=== PATIENT | female | born 1955 | race Caucasian/White ===

== ENCOUNTER → 2018-04-21 | Outpatient (REF) | payer BC | LOC: M SFHCLERA 11:04 | DX: R30.0 Dysuria (principal) ==

== ENCOUNTER → 2018-04-21 | Outpatient (CLI) | payer BC, OTHER | LOC: M LRY 11:03 | DX: R91.8 Other nonspecific abnormal finding of lung field (principal); R30.0 Dysuria; J40 Bronchitis, not specified as acute or chronic; Z91.09 Other allergy status, other than to drugs and biological substances | CPT/HCPCS: 87086 ==

== ENCOUNTER → 2018-08-08 | Outpatient (REF) | payer BC | LOC: M SFHCLERA 10:50 | DX: L02.91 Cutaneous abscess, unspecified (principal); R23.8 Other skin changes | CPT/HCPCS: 87529 ==

== ENCOUNTER 2018-08-09 15:35 | Emergency (ER) | payer BC ==
[2018-08-09 17:20] LABS: BASO % 0.5 % (0.0-1.0); EOS # 0.5 10^3/uL (0.0-0.50); EOS % 6.6 % (0.0-3.0); HEMATOCRIT 43.3 % (36.0-47.0); HEMOGLOBIN 13.7 g/dl (12.0-15.5); IMMATURE GRANULOCYTE % 1.8 % (0-3.0); LYMPH # 1.8 10^3/uL (1.5-4.5); LYMPH % 22.6 % (24.0-44.0); MEAN CORPUSCULAR HEMOGLOBIN 31.1 pg (27.0-33.0); MEAN CORPUSCULAR HGB CONC 31.6 g/dl (32.0-36.5); MEAN CORPUSCULAR VOLUME 98.2 fl (80.0-96.0); MONO # 0.5 10^3/uL (0.0-0.8); MONO % 6.4 % (0.0-5.0); NEUTROPHILS % 62.1 % (36.0-66.0); PLATELET COUNT, AUTOMATED 118 10^3/uL (150-450); RED BLOOD COUNT 4.41 10^6/uL (4.00-5.40); RED CELL DISTRIBUTION WIDTH 13.6 % (11.5-14.5); WHITE BLOOD COUNT 8.1 10^3/uL (4.0-10.0)
[2018-08-09 17:25] LABS: KETONE, URINE AUTO RFX NEGATIVE (NEGATIVE); LEUKOCYTE ESTERASE UR AUTO RFX NEGATIVE (NEGATIVE); NITRITE, URINE AUTO RFX NEGATIVE (NEGATIVE); RBC, URINE AUTO RFX 3 /HPF (0-3); SPECIFIC GRAVITY UR AUTO RFX 1.003 (1.002-1.035); SQUAM EPITHELIAL CELL UR AURFX 0 /HPF (0-6); WBC, URINE AUTO RFX 1 /HPF (0-3)
[2018-08-09 17:30] LABS: INR 0.93; PROTHROMBIN TIME 12.6 SECONDS (12.1-14.4)
[2018-08-09 17:31] LABS: PARTIAL THROMBOPLASTIN TIME 36.9 SECONDS (25.4-37.6)
[2018-08-09 17:33] LABS: LACTIC ACID SEPSIS PROTOCOL 0.4 MMOL/L (0.4-2.0)
[2018-08-09 17:39] LABS: ALBUMIN 3.1 GM/DL (3.2-5.2); ALBUMIN/GLOBULIN RATIO 0.78 (1.00-1.93); ALKALINE PHOSPHATASE 72 U/L (45-117); ALT/SGPT 53 U/L (12-78); ANION GAP 3 MEQ/L (8-16); AST/SGOT 27 U/L (7-37); BILIRUBIN,DIRECT < 0.1 MG/DL (0.0-0.2); BILIRUBIN,TOTAL 0.3 MG/DL (0.2-1.0); BLOOD UREA NITROGEN 46 MG/DL (7-18); CALCIUM LEVEL 8.4 MG/DL (8.8-10.2); CARBON DIOXIDE LEVEL 30 MEQ/L (21-32); CHLORIDE LEVEL 109 MEQ/L (98-107); CREATININE FOR GFR 2.85 MG/DL (0.55-1.30); GLOMERULAR FILTRATION RATE 17.9 (>45); GLUCOSE, FASTING 112 MG/DL (70-100); MAGNESIUM LEVEL 3.3 MG/DL (1.8-2.4); POTASSIUM SERUM 5.2 MEQ/L (3.5-5.1); SODIUM LEVEL 142 MEQ/L (136-145); TOTAL PROTEIN 7.1 GM/DL (6.4-8.2)
== END 2018-08-09 18:47 | disposition home or self-care (01) ==
LOC: M ED 15:35
DX: E86.0 Dehydration (principal); T37.5X5A Adverse effect of antiviral drugs, initial encounter; Y92.9 Unspecified place or not applicable; Y93.9 Activity, unspecified; E11.9 Type 2 diabetes mellitus without complications; I10 Essential (primary) hypertension; E78.5 Hyperlipidemia, unspecified; K21.9 Gastro-esophageal reflux disease without esophagitis; Z72.0 Tobacco use; Z79.82 Long term (current) use of aspirin; Z79.4 Long term (current) use of insulin; Z79.899 Other long term (current) drug therapy; Z88.2 Allergy status to sulfonamides; Z91.010 Allergy to peanuts
CPT/HCPCS: 71046

== ENCOUNTER 2018-08-16 20:10 | Inpatient (IN) | payer BC ==
[2018-08-16] MEDS ORDERED: ONDANSETRON 4MG/2ML VIAL (J2405) IV (20:45)
[2018-08-16] MEDS: HumaLOG INSULIN (NovoLOG) PER UNIT SC (21:00)
[2018-08-16] MEDS: HEPARIN SOD (PORCINE) 5000 UNITS/ML VIAL SQ (21:00)
[2018-08-16] MEDS ORDERED: GLUCOSE 4 GM CHEW TABLET PO (21:15)
[2018-08-16] MEDS ORDERED: DEXTROSE 50% 50 ML SYRINGE IV (21:15)
[2018-08-16] MEDS ORDERED: GLUCAGON FOR INJ 1 MG VIAL (J1610) SC (21:15)
[2018-08-16 21:24] LABS: BASO % 0.2 % (0.0-1.0); EOS # 0.1 10^3/uL (0.0-0.50); EOS % 0.6 % (0.0-3.0); HEMATOCRIT 43.9 % (36.0-47.0); HEMOGLOBIN 13.8 g/dl (12.0-15.5); IMMATURE GRANULOCYTE % 1.4 % (0-3.0); LYMPH # 0.7 10^3/uL (1.5-4.5); LYMPH % 7.4 % (24.0-44.0); MEAN CORPUSCULAR HEMOGLOBIN 30.8 pg (27.0-33.0); MEAN CORPUSCULAR HGB CONC 31.4 g/dl (32.0-36.5); MONO % 0.4 % (0.0-5.0); NEUTROPHILS # 8.1 10^3/uL (1.8-7.7); RED BLOOD COUNT 4.48 10^6/uL (4.00-5.40); RED CELL DISTRIBUTION WIDTH 14.4 % (11.5-14.5)
[2018-08-16] MEDS ORDERED: NICOTINE 14 MG/24 HR TRANSDERMAL TD (21:30)
[2018-08-16 21:33] LABS: INR 0.92; PROTHROMBIN TIME 12.4 SECONDS (12.1-14.4)
[2018-08-16 21:34] LABS: AMMONIA 21 uMOL/L (<32)
[2018-08-16 21:38] LABS: LACTIC ACID SEPSIS PROTOCOL 0.7 MMOL/L (0.4-2.0)
[2018-08-16 21:53] LABS: IMMATURE PLATELET FRACTION % 7.7 % (0.0-9.6); PLATELET COUNT, AUTOMATED 88 10^3/uL (150-450)
[2018-08-16 21:58] LABS: ALBUMIN 3.2 GM/DL (3.2-5.2); ALBUMIN/GLOBULIN RATIO 0.94 (1.00-1.93); ALKALINE PHOSPHATASE 73 U/L (45-117); ALT/SGPT 92 U/L (12-78); ANION GAP 6 MEQ/L (8-16); AST/SGOT 37 U/L (7-37); BILIRUBIN,TOTAL 0.2 MG/DL (0.2-1.0); BLOOD UREA NITROGEN 40 MG/DL (7-18); C REACTIVE PROTEIN QUANTITATIV < 0.30 MG/DL (0.00-0.30); CALCIUM LEVEL 8.1 MG/DL (8.8-10.2); CARBON DIOXIDE LEVEL 28 MEQ/L (21-32); CHLORIDE LEVEL 109 MEQ/L (98-107); CPK CREATINE PHOSPHOKINASE 104 U/L (26-192); CREATININE FOR GFR 2.31 MG/DL (0.55-1.30); GLOMERULAR FILTRATION RATE 22.8 (>45); GLUCOSE, FASTING 148 MG/DL (70-100); MAGNESIUM LEVEL 3.4 MG/DL (1.8-2.4); POTASSIUM SERUM 5.1 MEQ/L (3.5-5.1); SODIUM LEVEL 143 MEQ/L (136-145); TOTAL PROTEIN 6.6 GM/DL (6.4-8.2); TROPONIN I < 0.02 NG/ML (< 0.10)
[2018-08-16] MEDS: ASPIRIN 325 MG TAB PO (22:06)
[2018-08-16] MEDS: GABAPENTIN 300 MG CAP PO (22:06)
[2018-08-16] MEDS: **hydrALAZINE** 50 MG TAB PO (22:07)
[2018-08-16] MEDS: NS 1,000 ML IV (22:07)
[2018-08-16] MEDS: SIMVASTATIN 40 MG TAB PO (22:07)
[2018-08-16] MEDS: LEVEMIR (INSULIN DETEMIR) 1 UNITS/0.01ML SC (22:11)
[2018-08-16 22:29] LABS: BEDSIDE GLUCOSE 139 MG/DL (80-115)
[2018-08-16 22:36] LABS: KETONE, URINE AUTO RFX NEGATIVE (NEGATIVE); LEUKOCYTE ESTERASE UR AUTO RFX NEGATIVE (NEGATIVE); NITRITE, URINE AUTO RFX NEGATIVE (NEGATIVE); RBC, URINE AUTO RFX 2 /HPF (0-3); SPECIFIC GRAVITY UR AUTO RFX 1.008 (1.002-1.035); SQUAM EPITHELIAL CELL UR AURFX 1 /HPF (0-6); WBC, URINE AUTO RFX 0 /HPF (0-3)
[2018-08-16 22:39] LABS: OSMOLALITY URINE 276 MOSM/KG (500-800)
[2018-08-16 22:55] LABS: CHLORIDE,RANDOM URINE 66 MEQ/L; CREATININE,RANDOM URINE 19.7 MG/DL; POTASSIUM RANDOM URINE 20.7 MEQ/L; SODIUM,RANDOM URINE 63 MEQ/L; TOTAL PROTEIN,RANDOM URINE 433.2 MG/DL (0.0-12.0)
[2018-08-17 02:55] LABS: HEMATOCRIT 39.4 % (36.0-47.0); HEMOGLOBIN 12.5 g/dl (12.0-15.5); MEAN CORPUSCULAR HEMOGLOBIN 30.9 pg (27.0-33.0); MEAN CORPUSCULAR HGB CONC 31.7 g/dl (32.0-36.5); MEAN CORPUSCULAR VOLUME 97.3 fl (80.0-96.0); RED BLOOD COUNT 4.05 10^6/uL (4.00-5.40); RED CELL DISTRIBUTION WIDTH 14.1 % (11.5-14.5); WHITE BLOOD COUNT 7.7 10^3/uL (4.0-10.0)
[2018-08-17 02:56] LABS: PLATELET COUNT, AUTOMATED 88 10^3/uL (150-450)
[2018-08-17 03:10] LABS: ALBUMIN 2.8 GM/DL (3.2-5.2); ANION GAP 4 MEQ/L (8-16); BLOOD UREA NITROGEN 42 MG/DL (7-18); CALCIUM LEVEL 7.7 MG/DL (8.8-10.2); CARBON DIOXIDE LEVEL 28 MEQ/L (21-32); CHLORIDE LEVEL 111 MEQ/L (98-107); GLOMERULAR FILTRATION RATE 22.9 (>45); GLUCOSE, FASTING 116 MG/DL (70-100); MAGNESIUM LEVEL 3.3 MG/DL (1.8-2.4); POTASSIUM SERUM 5.1 MEQ/L (3.5-5.1); SODIUM LEVEL 143 MEQ/L (136-145)
[2018-08-17 03:16] LABS: CPK CREATINE PHOSPHOKINASE 76 U/L (26-192); MB/CK RELATIVE INDEX 4.08 (< OR =4); TROPONIN I < 0.02 NG/ML (< 0.10)
[2018-08-17] MEDS: **hydrALAZINE** 50 MG TAB PO ×4 (05:05→22:00)
[2018-08-17] MEDS: HumaLOG INSULIN (NovoLOG) PER UNIT SC ×4 (07:30→21:26)
[2018-08-17] MEDS: HEPARIN SOD (PORCINE) 5000 UNITS/ML VIAL SQ ×2 (09:51→21:27)
[2018-08-17] MEDS: ASPIRIN 81 MG ENTERIC TAB PO (09:52)
[2018-08-17] MEDS: CARVedilol 12.5 MG TAB PO ×2 (09:52→21:25)
[2018-08-17 11:46] LABS: BEDSIDE GLUCOSE 283 MG/DL (80-115)
[2018-08-17] MEDS ORDERED: PATIROMER SORBITEX CALCIUM 8.4 GM POWDER PACKET (VELTASSA) PO (12:00)
[2018-08-17 17:02] LABS: BEDSIDE GLUCOSE 106 MG/DL (80-115)
[2018-08-17 21:24] LABS: BEDSIDE GLUCOSE 112 MG/DL (80-115)
[2018-08-17] MEDS: SIMVASTATIN 40 MG TAB PO (21:24)
[2018-08-17] MEDS: GABAPENTIN 300 MG CAP PO (21:24)
[2018-08-17] MEDS: LEVEMIR (INSULIN DETEMIR) 1 UNITS/0.01ML SC (21:26)
[2018-08-18 04:48] LABS: BEDSIDE GLUCOSE 53 MG/DL (80-115)
[2018-08-18] MEDS: **hydrALAZINE** 50 MG TAB PO ×3 (05:04→21:58)
[2018-08-18 05:10] LABS: HEMATOCRIT 38.4 % (36.0-47.0); MEAN CORPUSCULAR HEMOGLOBIN 30.7 pg (27.0-33.0); MEAN CORPUSCULAR HGB CONC 31.3 g/dl (32.0-36.5); MEAN CORPUSCULAR VOLUME 98.2 fl (80.0-96.0); RED BLOOD COUNT 3.91 10^6/uL (4.00-5.40); RED CELL DISTRIBUTION WIDTH 14.6 % (11.5-14.5); WHITE BLOOD COUNT 9.6 10^3/uL (4.0-10.0)
[2018-08-18 05:12] LABS: PLATELET COUNT, AUTOMATED 90 10^3/uL (150-450)
[2018-08-18 05:13] LABS: IMMATURE PLATELET FRACTION % 8.3 % (0.0-9.6)
[2018-08-18 05:14] LABS: BEDSIDE GLUCOSE 101 MG/DL (80-115)
[2018-08-18 05:17] LABS: ALBUMIN 2.8 GM/DL (3.2-5.2); ANION GAP 6 MEQ/L (8-16); BLOOD UREA NITROGEN 51 MG/DL (7-18); CALCIUM LEVEL 7.8 MG/DL (8.8-10.2); CARBON DIOXIDE LEVEL 28 MEQ/L (21-32); CHLORIDE LEVEL 105 MEQ/L (98-107); CREATININE FOR GFR 2.66 MG/DL (0.55-1.30); GLOMERULAR FILTRATION RATE 19.4 (>45); GLUCOSE, FASTING 50 MG/DL (70-100); MAGNESIUM LEVEL 3.3 MG/DL (1.8-2.4); PHOSPHORUS LEVEL 4.7 MG/DL (2.5-4.9); SODIUM LEVEL 139 MEQ/L (136-145)
[2018-08-18 07:55] LABS: BEDSIDE GLUCOSE 57 MG/DL (80-115)
[2018-08-18] MEDS: HumaLOG INSULIN (NovoLOG) PER UNIT SC ×4 (08:00→21:00)
[2018-08-18 08:17] LABS: BEDSIDE GLUCOSE 70 MG/DL (80-115)
[2018-08-18] MEDS: HEPARIN SOD (PORCINE) 5000 UNITS/ML VIAL SQ ×2 (09:00→21:00)
[2018-08-18] MEDS: CARVedilol 12.5 MG TAB PO ×2 (10:06→21:58)
[2018-08-18] MEDS: ASPIRIN 81 MG ENTERIC TAB PO (10:06)
[2018-08-18 11:41] LABS: BEDSIDE GLUCOSE 128 MG/DL (80-115)
[2018-08-18] MEDS: FUROSEMIDE 20 MG TAB PO (13:35)
[2018-08-18 16:56] LABS: BEDSIDE GLUCOSE 133 MG/DL (80-115)
[2018-08-18] MEDS: LEVEMIR (INSULIN DETEMIR) 1 UNITS/0.01ML SC (21:00)
[2018-08-18 21:01] LABS: BEDSIDE GLUCOSE 105 MG/DL (80-115)
[2018-08-18] MEDS: GABAPENTIN 300 MG CAP PO (21:57)
[2018-08-18] MEDS: SIMVASTATIN 40 MG TAB PO (21:58)
[2018-08-19 01:01] LABS: BEDSIDE GLUCOSE 157 MG/DL (80-115)
[2018-08-19] MEDS: **hydrALAZINE** 50 MG TAB PO (05:20)
[2018-08-19 07:05] LABS: HEMATOCRIT 38.7 % (36.0-47.0); HEMOGLOBIN 12.1 g/dl (12.0-15.5); MEAN CORPUSCULAR HEMOGLOBIN 30.3 pg (27.0-33.0); MEAN CORPUSCULAR HGB CONC 31.3 g/dl (32.0-36.5); RED BLOOD COUNT 3.99 10^6/uL (4.00-5.40); RED CELL DISTRIBUTION WIDTH 14.5 % (11.5-14.5); WHITE BLOOD COUNT 8.6 10^3/uL (4.0-10.0)
[2018-08-19 07:06] LABS: PLATELET COUNT, AUTOMATED 93 10^3/uL (150-450)
[2018-08-19 07:13] LABS: IMMATURE PLATELET FRACTION % 7.5 % (0.0-9.6)
[2018-08-19] MEDS: HumaLOG INSULIN (NovoLOG) PER UNIT SC (07:30)
[2018-08-19 07:31] LABS: ALBUMIN 2.9 GM/DL (3.2-5.2); ANION GAP 6 MEQ/L (8-16); BLOOD UREA NITROGEN 57 MG/DL (7-18); CALCIUM LEVEL 8.2 MG/DL (8.8-10.2); CARBON DIOXIDE LEVEL 27 MEQ/L (21-32); CHLORIDE LEVEL 106 MEQ/L (98-107); CREATININE FOR GFR 2.61 MG/DL (0.55-1.30); GLOMERULAR FILTRATION RATE 19.8 (>45); GLUCOSE, FASTING 62 MG/DL (70-100); MAGNESIUM LEVEL 3.4 MG/DL (1.8-2.4); PHOSPHORUS LEVEL 5.5 MG/DL (2.5-4.9); SODIUM LEVEL 139 MEQ/L (136-145)
[2018-08-19 07:58] LABS: BEDSIDE GLUCOSE 65 MG/DL (80-115)
[2018-08-19] MEDS: HEPARIN SOD (PORCINE) 5000 UNITS/ML VIAL SQ (09:00)
[2018-08-19] MEDS: CARVedilol 12.5 MG TAB PO (09:00)
[2018-08-19] MEDS: ASPIRIN 81 MG ENTERIC TAB PO (09:49)
[2018-08-19] MEDS: FUROSEMIDE 20 MG TAB PO (10:44)
[2018-08-19] MEDS ORDERED: **hydrALAZINE HCL** 25 MG TAB PO (16:00)
[2018-08-20] MEDS ORDERED: FUROSEMIDE 20 MG TAB PO (09:00)
[2018-08-21] MEDS ORDERED: VITAMIN D 50,000 UNITS CAPSULE (ERGOCALCIFEROL 1.25MG) PO (09:00)
== END 2018-08-19 10:50 | disposition home or self-care (01) | DRG 58 ==
LOC: M MSPAV 08-18 10:56 → M ICU 20:10
DX: R47.81 Slurred speech (principal); N17.9 Acute kidney failure, unspecified; I13.0 Hypertensive heart and chronic kidney disease with heart failure and stage 1 through stage 4 chronic kidney disease, or unspecified chronic kidney disease; E11.21 Type 2 diabetes mellitus with diabetic nephropathy; N18.4 Chronic kidney disease, stage 4 (severe); I50.32 Chronic diastolic (congestive) heart failure; E11.40 Type 2 diabetes mellitus with diabetic neuropathy, unspecified; E11.43 Type 2 diabetes mellitus with diabetic autonomic (poly)neuropathy; R47.01 Aphasia; E87.5 Hyperkalemia; R26.9 Unspecified abnormalities of gait and mobility; R20.0 Anesthesia of skin; E78.5 Hyperlipidemia, unspecified; K44.9 Diaphragmatic hernia without obstruction or gangrene; G47.33 Obstructive sleep apnea (adult) (pediatric); G45.9 Transient cerebral ischemic attack, unspecified; Z88.2 Allergy status to sulfonamides; Z91.010 Allergy to peanuts; Z79.4 Long term (current) use of insulin; Z79.899 Other long term (current) drug therapy; R19.7 Diarrhea, unspecified; I16.0 Hypertensive urgency; F17.200 Nicotine dependence, unspecified, uncomplicated; E86.0 Dehydration; T36.8X5A Adverse effect of other systemic antibiotics, initial encounter